=== PATIENT | female | born 1965 | race Two or more races ===

== ENCOUNTER 2023-08-07 11:33 | Emergency (ER) | payer OTHER ==
[~2023-08-07] VITALS: Ht 157.5 cm; Wt 87.0 kg
[2023-08-07 11:38] VITALS: O2SAT 97
[2023-08-07] MEDS: ACETAMINOPHEN 325MG TABLET PO ONE (12:00)
[2023-08-07 12:38] VITALS: BP 147/89; PULSE 81; RESP 16; TEMP 97.7
== END 2023-08-07 12:41 | disposition home or self-care (01) ==
LOC: ER 11:33
DX: M25.561 Pain in right knee (principal); M25.562 Pain in left knee
CPT/HCPCS: 99283